=== PATIENT | female | born 1990 | race American Indian/Alaskan Native ===

== ENCOUNTER 2016-08-18 14:31 | Emergency (ER) | payer OTHER ==
[2016-08-18 15:16] VITALS: BMI 43.6
[2016-08-18 15:17] VITALS: BP 133/86; PULSE 93; RESP 18; TEMP 99.2; O2SAT 100
--- NOTE | 2016-08-18 16:04 | C.PDOC ---
History Of Present Illness 26 yr old female presents to the ER for evaluation of right submandibular lymph nodes swelling since yesterday. Patient also reports of intermittent right lower tooth ache for the past few weeks. Patient denies fever, chills, recent dental work, dysphagia, dyspnea, drooling, weight loose, CP, SOB, abd. pain, nausea, vomiting, or any other active complaints. Ambulate to ED for evaluation , not in any apparent distress. Time Seen by Provider: 08/18/16 15:19 Chief Complaint (Nursing): ENT Problem History Per: Patient History/Exam Limitations: None Onset/Duration Of Symptoms: Days (1) Current Symptoms Are (Timing): Still Present Past Medical History Reviewed: Historical Data, Nursing Documentation, Vital Signs Vital Signs: Last Vital Signs Temp 99.2 F 08/18/16 15:16 Pulse 93 H 08/18/16 15:16 Resp 18 08/18/16 15:16 BP 133/86 08/18/16 15:16 Pulse Ox 100 08/18/16 18:00 Family History: States: No Known Family Hx - Social History Hx Tobacco Use: No Hx Alcohol Use: Yes Hx Substance Use: No - Immunization History Hx Tetanus Toxoid Vaccination: No Hx Influenza Vaccination: No Hx Pneumococcal Vaccination: No Review Of Systems Except As Marked, All Systems Reviewed And Found Negative. Constitutional: Negative for: Fever, Chills, Weight loss ENT: Positive for: Other ((+) Right submandibular lymph nodes swelling) Gastrointestinal: Negative for: Nausea, Vomiting Neurological: Negative for: Weakness, Numbness, Headache Physical Exam - Physical Exam Appears: Well, Non-toxic, No Acute Distress Skin: Normal Color, Warm, Dry, No Rash Eye(s): bilateral: Normal Inspection Nose: Normal, No Discharge Oral Mucosa: Moist, No Drooling Teeth: Caries (Right lower 1st molar with large cavity, mild tendernes sto percusion.) Gingiva: Tender (Right lower 1st molar), No Abscess Throat: Normal, No Erythema, No Exudate, No Drooling Neck: Normal, Normal ROM, Supple Lymphatic: Adenopathy (mild Right submandibular ADN) Respiratory: Normal Breath Sounds Extremity: Normal ROM, No Pedal Edema, No Deformity Neurological/Psych: Oriented x3, Normal Speech ED Course And Treatment O2 Sat by Pulse Oximetry: 100 Pulse Ox Interpretation: Normal Progress Note: On re-evaluation, pt is afebrile, hemodynamicaly stable. Non- toxic. Tolerate PO well in ED. PulseOx 100% RA. ENT: (+) Right 1st molar dental ache with mild gingivitis. no other acute findings. Neck: (-) meningeal sign. Lungs: CTA B/L, BS equal B/L. Pt denies known allergy to medication incuding PCN. Pt has clinical findings c/w Right submandibular LDN, mild Right lower gingivitis, no evidence of tooth abscess. Pt advised. ref. to F/u with PMD, Dental in 2-3 days for re-evaluation. Disposition Counseled Patient/Family Regarding: Diagnosis, Need For Followup, Rx Given - Disposition Referrals: [facility] [Provider Group] [facility] [Provider Group] Disposition: HOME/ ROUTINE Disposition Time: 15:30 Condition: STABLE Additional Instructions: Take medication as prescribed Follow up with PMD, Dentist in 2-3 days for re-evaluation. return to Ed if any worsening or new changes. 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 - Scribe Statement The provider has reviewed the documentation as recorded by the Scribe Caryn Leiva All medical record entries made by the Scribe were at my direction and personally dictated by me. I have reviewed the chart and agree that the record accurately reflects my personal performance of the history, physical exam, medical decision making, and the department course for this patient. I have also personally directed, reviewed, and agree with the discharge instructions and disposition.
== END 2016-08-18 16:14 | disposition home or self-care (01) ==
LOC: C.ER 14:31
DX: R59.1 Generalized enlarged lymph nodes (principal); K08.89 Other specified disorders of teeth and supporting structures

== ENCOUNTER 2017-05-28 13:04 | Emergency (ER) | payer OTHER ==
[2017-05-28 13:13] VITALS: BMI 43.2
--- NOTE | 2017-05-28 14:18 | C.PDOC ---
History Of Present Illness 26 yo female come in for evaluation of intermittent lower abdominal cramping pain associated with vaginal irritation, white discharges with strong odor for past few weeks. Pt also request test, last normal menstrual period 2 months ago. Pt sts, noted some spotting for few days 2 week sago that resolved with time. At present time, pt denies vaginal bleeding or spotting. Otherwise, pt denies fever, chills, headache, dizziness, CP, SOB, dyspnea, N/V/D, back pain , hematuria, denies previous hx of STD. Ambulate to Ed for evaluation, not in any apparent distress. Time Seen by Provider: 05/28/17 13:42 Chief Complaint (Nursing): Abdominal Pain History Per: Patient History/Exam Limitations: no limitations Onset/Duration Of Symptoms: Persistent (past few weeks) Current Symptoms Are (Timing): Still Present Quality Of Discomfort: Cramping Past Medical History Reviewed: Historical Data, Nursing Documentation, Vital Signs Vital Signs: Last Vital Signs Temp 98.3 F 05/28/17 14:27 Pulse 103 H 05/28/17 14:27 Resp 20 05/28/17 14:27 BP 129/76 05/28/17 14:27 Pulse Ox 100 05/28/17 14:27 Family History: States: No Known Family Hx - Social History Hx Tobacco Use: No Hx Alcohol Use: Yes Hx Substance Use: No - Immunization History Hx Tetanus Toxoid Vaccination: No Hx Influenza Vaccination: No Hx Pneumococcal Vaccination: No Review Of Systems Except As Marked, All Systems Reviewed And Found Negative. Constitutional: Negative for: Fever, Chills Cardiovascular: Negative for: Chest Pain Respiratory: Negative for: Shortness of Breath Gastrointestinal: Positive for: Abdominal Pain (lower abdominal cramping pain). Negative for: Nausea, Vomiting Genitourinary: Positive for: Vaginal Discharge (white), Other ((+) vaginal irritation, strong odor). Negative for: Hematuria Musculoskeletal: Negative for: Back Pain Neurological: Negative for: Headache, Dizziness Physical Exam - Physical Exam Appears: Well, Non-toxic, No Acute Distress Skin: Normal Color, Warm, Dry, No Rash Head: Normacephalic Eye(s): bilateral: PERRL Nose: No Discharge Oral Mucosa: Moist, No Drooling Throat: No Erythema, No Drooling Neck: Trachea Midline, Supple Gastrointestinal/Abdominal: Soft, Tenderness (mild suprapubic), No Distention, No Guarding Back: No CVA Tenderness Pelvic: No Vaginal Bleeding, Vaginal Discharge (THICK WHITE, (-) ODOR NOTED), No Cervical Motion Tenderness, No Adnexal Tenderness Extremity: Normal ROM, No Pedal Edema, No Deformity, No Swelling Neurological/Psych: Oriented x3, Normal Speech ED Course And Treatment - Laboratory Results Urine POC: Positive O2 Sat by Pulse Oximetry: 100 Pulse Ox Interpretation: Normal Progress Note: On re-eval, pt is afebrile, hemodynamicaly stable. non-toxic. Tolerate Po well in ED. Neck: Supple. ENT: no acute findings. Lungs: CTA B/L , BS equal B/L. Abd: benign, (-) guarding, (-) rebound. back: (-) CVA tenderness. pelvic exam c/w candidial vulvovaginitis, no bleeding noted. Preg (+), Pt reports, . UA normal study. Pt has clinical findings c/w vulvovaginitis, early , no vag bleeding or abdominal pain at present time. Pt advised on course of ds. ref. to f/u with OB in 1-2 days for re- eavl. return to ED if any worsening of abd. pain, or vag spotting/bleeding or any new changes. Medical Decision Making Medical Decision Making: PLAN: * Urinalysis Disposition Counseled Patient/Family Regarding: Studies Performed, Diagnosis, Need For Followup, Rx Given - [facility]position [facility] Disposition Time: 14:59 Condition: STABLE Additional Instructions: VITAMINS VAGINAL SUPPOSITORY PRESCRIBED FOLLOW UP WITH [facility] IN 1-2 DAYS FOR RE-EVALUATION. RETURN TO ED AT ANY TIME IF ANY WORSENING- ABDOMINAL PAIN, VAGINAL BLEEDING OR ANY OTHER NEW CHANGES. 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 - Scribe Statement The provider has reviewed the documentation as recorded by the Scribnoelle Leiva All medical record entries made by the Scribe were at my direction and personally dictated by me. I have reviewed the chart and agree that the record accurately reflects my personal performance of the history, physical exam, medical decision making, and the department course for this patient. I have also personally directed, reviewed, and agree with the discharge instructions and disposition.
[2017-05-28 14:28] VITALS: BP 129/76; PULSE 103; RESP 20; TEMP 98.3; O2SAT 100
[2017-05-28 14:51] LABS: SQUAMOUS EPITHIAL 2 /hpf (0-5); URINE BACTERIA RARE (<OCC); URINE BILIRUBIN NEGATIVE (NEGATIVE); URINE BLOOD NEGATIVE (NEGATIVE); URINE CLARITY Clear (Clear); URINE COLOR Yellow (YELLOW); URINE GLUCOSE (UA) NORMAL (Normal); URINE LEUKOCYTE ESTERASE TRACE Leu/uL (Negative); URINE NITRATE NEGATIVE (NEGATIVE); URINE PROTEIN NEGATIVE (NEGATIVE); URINE UROBILINOGEN NORMAL mg/dL (0.2-1.0)
== END 2017-05-28 15:36 | disposition home or self-care (01) ==
LOC: C.ER 13:04
DX: B37.3 Candidiasis of vulva and vagina (principal); Z33.1 Pregnant state, incidental